=== PATIENT | female | born 1955 | race Caucasian/White ===

== ENCOUNTER → 2018-02-09 16:29 | Outpatient (CLI) | payer BC | END | disposition home or self-care (01) | LOC: D.MAMMO 09:45 | DX: Z12.31 Encounter for screening mammogram for malignant neoplasm of breast (principal) ==

== ENCOUNTER 2019-02-15 08:00 | Outpatient (CLI) | payer BC | END 2019-02-15 23:59 | disposition home or self-care (01) | LOC: D.MAMMO 08:00 | PROVIDERS: ATTEND Clinical Nurse Specialist Family Health | DX: Z12.31 Encounter for screening mammogram for malignant neoplasm of breast (principal) ==

== ENCOUNTER 2020-07-16 15:00 | Outpatient (CLI) | payer MEDICARE | END 2020-07-16 23:59 | disposition home or self-care (01) | LOC: D.MAMMO 15:00 | PROVIDERS: ATTEND Family Medicine | DX: R92.8 Other abnormal and inconclusive findings on diagnostic imaging of breast (principal) ==

== ENCOUNTER → 2020-08-03 14:19 | Outpatient (CLI) | payer MEDICARE | END | disposition home or self-care (01) | LOC: D.LABREF 14:19 | PROVIDERS: ATTEND Orthopaedic Surgery | DX: M17.11 Unilateral primary osteoarthritis, right knee (principal) ==

== ENCOUNTER 2020-09-18 09:21 | Observation (INO) | payer MEDICARE ==
[2020-09-12 12:22] LABS: BILIRUBIN NEGATIVE (NEGATIVE); KETONE NEGATIVE (NEGATIVE); NITRITE POSITIVE (NEGATIVE); UROBILINOGEN NORMAL mg/dL (< 2)
[2020-09-12 12:23] LABS: BACTERIA MOD HPF (NONE SEEN); WHITE CELLS - URINE >50 HPF (0-4)
[2020-09-12 13:01] LABS: BASOPHILS 0.2 % (0-2); EOSINOPHILS 2.1 % (0-7); HEMATOCRIT 46.1 % (36.0-48.0); HEMOGLOBIN 15.2 g/dL (12-16); IMMATURE GRANULOCYTES 0.4 % (0-5); LYMPHOCYTE ABS# 2.29 10x3/uL (1.18-3.74); LYMPHOCYTES 18.7 % (15-50); MCH 27.5 pg (26.0-34.0); MCV 83.5 fL (80.0-100.0); MEAN PLATELET VOLUME 10.3 fL (7.4-10.4); MONOCYTES 6.4 % (2-11); NEUTROPHIL ABS# 8.82 10x3/uL (1.56-6.13); NEUTROPHILS 72.2 % (40-80); PLATELET COUNT 282 10x3/uL (130-400); RBC 5.52 10x6/uL (4.00-5.40); RDW 13.6 % (11.5-14.5); WBC 12.2 10x3/uL (4.8-10.8)
[2020-09-12 13:10] LABS: APTT 29.5 SECONDS (22.8-39.4); INR 1.13 (0.85-1.17); PROTIME 13.4 SECONDS (11.6-15.0)
[2020-09-12 13:13] LABS: ANION GAP 12.3 mmol/L (8-16); CALCIUM 9.6 mg/dL (8.5-10.1); CARBON DIOXIDE 28.1 mmol/L (21.0-32.0); CREATININE - SERUM 1.1 mg/dL (0.6-1.3); POTASSIUM - SERUM 3.4 mmol/L (3.5-5.1)
[2020-09-18] VITALS (12 sets, daily range): BP systolic 82–143; BP diastolic 42–77; Ht 162.6 cm; Wt 86.8 kg
[~2020-09-18] VITALS: Ht 162.6 cm; Wt 86.8 kg
[2020-09-18 09:10] LABS: BILIRUBIN NEGATIVE (NEGATIVE); KETONE NEGATIVE (NEGATIVE); NITRITE NEGATIVE (NEGATIVE); UROBILINOGEN NORMAL mg/dL (< 2); WHITE CELLS - URINE 0-5 HPF (0-4)
[2020-09-18 09:11] LABS: BACTERIA MODERATE HPF (NONE SEEN); SQUAMOUS EPITHELIAL 0-5 HPF (0-4)
[~2020-09-18 09:21] MED LIST: VITAMIN D31250 MCG PO
--- NOTE | 2020-09-18 11:25 | NUR ---
RECEIVED TO ROOM 1209 VIA BED FROM PACU. A/O X3. NO C/O PAIN OR DISCOMFORT. DRESSING TO RIGHT KNEE DRY AND INTACT. DENIES NEEDS.
--- NOTE | 2020-09-18 13:53 | OP ---
PATIENT NAME: CHRIS CAMPBELL MEDICAL RECORD: [id number] :51 LOCATION:D. D.1209 ADMISSION DATE:09/18/20 SURGEON: ANDERSON SANCHEZ DO DATE OF OPERATION: 09/18/2020 PROCEDURE PERFORMED: Right total knee arthroplasty. PREOPERATIVE DIAGNOSIS: Right knee osteoarthritis. POSTOPERATIVE DIAGNOSIS: Right knee osteoarthritis. INDICATIONS: Ms. Campbell is a 64-year-old female who has had right knee pain for quite some time. She got to the point where it was affecting her activities of daily living. She had tried all manner nonoperative treatment for it and wanted something done surgically. She was aware of the risk of this including infection, bleeding, damage to nerves and vessels, need for further surgery, failure of implants, fracture, blood clots and even and she signed the consent. SURGEON: Anderson Sanchez DO DESCRIPTION OF PROCEDURE: The patient received a block by anesthesia the preoperative area and taken to the operative suite, laid in supine position, given general anesthetic and LMA was placed. The right lower extremity was then prepped and draped in sterile fashion. A timeout was performed, everyone was in agreeance with the correct side, site, patient and procedure. She was given a gram of TXA, two grams of Ancef and 80 mg of gentamicin preoperatively. I then marked out an incision over the anterior knee, covered in Ioban. I made an incision through the skin, down to the capsule. I used a fresh 10-blade to go through the capsule, did medial parapatellar approach coagulating any vessels with Aquamantys throughout the procedure. I then everted the patella, measured it with calipers to be about 20 mm. I then milled it down to approximately 14 mm and after removing part of the fat pad drilled for a 29 patella and cemented it in after irrigating and put cement on the patella and on the implant, squeezed it in place, removed excess cement. I then exposed the femur, removed the ACL. I used an intramedullary guide after drilling through the femur and irrigating the intramedullary canal. I then made a distal femur cut off of the distal femoral guide intramedullary and removed that bone. I then exposed the tibia and a cut through an extramedullary guide, brought the knee in extension, remove the menisci and coagulated any bleeding. We then put in a 10 extension block, it fit well. I then flexed up the femur, sized the femur to be a 7. A 7, 4-in-1 cutting block was then used, using the neptali wing to make sure there was no notching. I then cut the femur through the 4-in-1 cutting guide, removed the bone. I then sized the tibia to be E and put the femoral trial on and then a 12 poly, ended up doing in between them, it fit very well, had good stability in varus valgus stress in flexion, mid flexion and extension. I then drilled lug holes for the femur, removed the trial femur as well as the poly, drilled the holes for the tibial press fit, irrigated thoroughly and then impacted on the tibial tray with TM backing and did the same thing on the femur and put a 12 medial congruent E poly in and secured it into place. I then ranged the knee and she had very good stability in flexion, extension, mid flexion, varus and valgus stress. I then irrigated with 10% povidone-iodine with 500 mL of normal saline solution. I then injected about the knee and the quads with the joint cocktail. I then irrigated out the iodine with over a liter of normal saline. Once the knee was dry and did not see any bleeding, I put in Jarvis, vancomycin OPERATIVE REPORT [id number] CHRIS CAMPBELL and tobramycin powder. I then closed the capsule with #1 Vicryl in a [id number]-cuxzy fashion. Artemio Tse, certified surgical assistant department manager then ran a #1 Stratafix over the capsular closure. I then put 2-0 Vicryl in inverted interrupted fashion to close the skin and then put on a ZipLine, Adaptic, 4 x 4s, ABD, Webril, Stephane wrap and a LESLIE hose stocking. She was then awakened and taken to recovery in stable condition. She was given another gram of TXA as well. BLOOD LOSS: Approximately 250 mL. COMPLICATIONS: None. TRANSINT:[id number] Voice Confirmation ID: [id number] DOCUMENT ID: [id number] ANDERSON SANCHEZ DO at 1356 CC: [id number] DICTATION DATE: 09/18/20 1026 PLASTICS FACTORY WORKER: 09/18/20 1349 ADM IN [facility] [address] [id number]
--- NOTE | 2020-09-18 16:22 | NUR ---
UP TO BR WITH MIN ASSIST OF ONE. VOIDED CLEAR YELLOW URINE WITHOUT DIFFICULTY. LAINEY CARE PER SELF. REPOSITIONED IN BED FOR COMFORT.
--- NOTE | 2020-09-18 20:00 | NUR ---
ALERT RESTING IN BED CPM IN USE, DENIES PAIN OR NEEDS AT THIS TIME, SEE SHIFT ASSESSMENT CALL LIGHT IN REACH
[2020-09-19] VITALS: BP 134/71
[2020-09-19 04:30] VITALS: BP 147/78
[2020-09-19] MEDS ORDERED: PERCOCET 5-3251 TAB PO (06:15)
[2020-09-19] MEDS ORDERED: ELIQUIS2.5 MG PO (06:15)
[2020-09-19] MEDS ORDERED: VISTARIL50 MG PO (06:16)
[2020-09-19 07:02] LABS: BASOPHILS 0.7 % (0-2); EOSINOPHILS 0.1 % (0-7); HEMATOCRIT 35.2 % (36.0-48.0); HEMOGLOBIN 11.7 g/dL (12-16); LYMPHOCYTES 9.9 % (15-50); MCHC 33.4 g/dL (31.0-37.0); MEAN PLATELET VOLUME 8.4 fL (7.4-10.4); MONOCYTES 9.7 % (2-11); NEUTROPHILS 79.6 % (40-80); PLATELET COUNT 247 10x3/uL (130-400); RBC 4.34 10x6/uL (4.00-5.40); RDW 13.7 % (11.5-14.5); WBC 16.2 10x3/uL (4.8-10.8)
[2020-09-19 07:18] LABS: ALBUMIN 2.9 g/dL (3.4-5.0); ANION GAP 14.7 mmol/L (8-16); BILIRUBIN - TOTAL 0.29 mg/dL (0.2-1.3); CALCIUM 8.5 mg/dL (8.5-10.1); CARBON DIOXIDE 26.4 mmol/L (21.0-32.0); CREATININE - SERUM 1.1 mg/dL (0.6-1.3); MAGNESIUM - SERUM 2.1 mg/dL (1.8-2.4); POTASSIUM - SERUM 4.1 mmol/L (3.5-5.1); PROTEIN - SERUM 5.8 g/dL (6.4-8.2)
--- NOTE | 2020-09-19 08:02 | NUR ---
PT RESTING IN BED WITH CPM IN PLACE. REPORTS PAIN 4/10 AT THIS TIME. RESP EVEN AND UNLABORED. IV TO LEFT HAND WITH 1/2 NS @ 100 ML/HR INFUSING VIA PUMP. SITE WITHOUT REDNESS OR EDEMA. DRESSING TO RIGHT KNEE C/D/I. DENIES FURTHER NEEDS AT THIS TIME. CL WITHIN REACH. ENCOURAGED TO CALL WITH NEEDS. CONTINUE POC
[2020-09-19 08:31] VITALS: BP 146/60
[2020-09-19] MEDS ORDERED: CIPRO500 MG PO (12:35)
--- NOTE | 2020-09-19 16:22 | MORECARE ---
CASE MANAGEMENT DISCHARGE SUMMARY PATIENT: CHRIS JULES UNIT: [id number] ADM DATE: 09/18/20 AGE: 64 : 53 SEX: F ROOM/BED: D.1209 AUTHOR: CAITY,DOC PHYSICIAN: REFERRING PHYSICIAN: MYKEL SANCHEZ DO DATE OF SERVICE: 09/19/20 Case Management Discharge Planning Summary DCP REVIEW SUMMARY ANTICIPATED D/C DATE: EXPECTED LOS : CASE STATUS: DCP Initiated INITIAL REVIEW: 09/18/2020 INITIAL REVIEWER: Esther Hernandez FINAL DISCHARGE DISPOSITION: : FINAL REVIEWER: FINAL REVIEW DATE: DCP Focus Questions & Answers QUESTION: ANSWER : PATIENT: CHRIS JULES ENCOUNTER: [id number] MEDICAL RECORD#: [id number] ADMISSION DATE: 09/18/2020 DISCHARGE DATE: 09/19/2020 ATTENDING MD: MYKEL LAZCANO : AGE: 64 MARITAL STATUS: S DC PLAN ID: [id number] FACILITY: [facility] PRINTED ON: 09/19/20 16:22 CT All edits/amendments must be made on the electronic document DICTATION DATE: 09/19/201621 TUBE PULLER: DM 09/19/201621 RPT#: [id number] DC DATE:09/19/20 STATUS: DIS IN [facility] [address] [place] [address] END OF REPORT
--- NOTE | 2020-09-19 16:34 | MORECARE ---
CASE MANAGEMENT DISCHARGE SUMMARY PATIENT: CHRIS JULES UNIT: [id number] ADM DATE: 09/18/20 AGE: 64 : 53 SEX: F ROOM/BED: D.1209 AUTHOR: CAITY,NAY PHYSICIAN: REFERRING PHYSICIAN: MYKEL SANCHEZ DO DATE OF SERVICE: 09/19/20 Case Management Discharge Planning Summary COMMENTS ENTERED DATE: 09/19/20 16:21 CT COMMENT TYPE: Discharge Planning REVIEWER: Esther Hernandez PCP: Dr. Shin Pharmacy: [facility] CM met with patient at bedside. Patient states that she lives at home alone but her cousin Shannon will be staying with her for awhile. Patient states that she has 3 steps going into her home. Patient states that she has a walker, elevated toilet seat, bedside commode, shower chair and CPM at home. Patient states that she wishes to do outpatient therapy when discharged. CARLOS signed for [facility]. Patient states that feels safe to discharge to her home with her cousin and she will have transportation home and to therapy. CM made appointment for first therapy appointment September 20 at 10:30 am. CM will give copy of appointment and order to patient. CM will continue to follow and assist as needed with discharge planning / needs DCP REVIEW SUMMARY ANTICIPATED D/C DATE: EXPECTED LOS : CASE STATUS: DCP Initiated INITIAL REVIEW: 09/18/2020 INITIAL REVIEWER: Esther Hernandez FINAL DISCHARGE DISPOSITION: : FINAL REVIEWER: FINAL REVIEW DATE: DCP Focus Questions & Answers QUESTION: ANSWER : PATIENT: CHRIS JULES ENCOUNTER: [id number] MEDICAL RECORD#: [id number] ADMISSION DATE: 09/18/2020 DISCHARGE DATE: 09/19/2020 ATTENDING MD: MYKEL LAZCANO : AGE: 64 MARITAL STATUS: S DC PLAN ID: [id number] FACILITY: [facility] PRINTED ON: 09/19/20 16:34 CT All edits/amendments must be made on the electronic document DICTATION DATE: 09/19/201633 FACILITIES CUSTODIAN: GRACIELA 09/19/20 1634 RPT#: [id number] DC DATE:09/19/20 STATUS: DIS IN [facility] [address] [place] [address] END OF REPORT
--- NOTE | 2020-09-19 20:04 | MORECARE ---
CASE MANAGEMENT DISCHARGE SUMMARY PATIENT: CHRIS JULES UNIT: [id number] ADM DATE: 09/18/20 AGE: 64 : 53 SEX: F ROOM/BED: D.1209 AUTHOR: CAITY,NAY PHYSICIAN: REFERRING PHYSICIAN: MYKEL SANCHEZ DO DATE OF SERVICE: 09/19/20 Case Management Discharge Planning Summary COMMENTS ENTERED DATE: 09/19/20 16:21 CT COMMENT TYPE: Discharge Planning REVIEWER: Esther Hernandez PCP: Dr. Shin Pharmacy: [facility] CM met with patient at bedside. Patient states that she lives at home alone but her cousin Shannon will be staying with her for awhile. Patient states that she has 3 steps going into her home. Patient states that she has a walker, elevated toilet seat, bedside commode, shower chair and CPM at home. Patient states that she wishes to do outpatient therapy when discharged. CARLOS signed for [facility]. Patient states that feels safe to discharge to her home with her cousin and she will have transportation home and to therapy. CM made appointment for first therapy appointment September 20 at 10:30 am. CM will give copy of appointment and order to patient. CM will continue to follow and assist as needed with discharge planning / needs DCP REVIEW SUMMARY ANTICIPATED D/C DATE: EXPECTED LOS : CASE STATUS: DCP Initiated INITIAL REVIEW: 09/18/2020 INITIAL REVIEWER: Esther Hernandez FINAL DISCHARGE DISPOSITION: : FINAL REVIEWER: FINAL REVIEW DATE: DCP Focus Questions & Answers QUESTION: ANSWER : PATIENT: CHRIS JULES ENCOUNTER: [id number] MEDICAL RECORD#: [id number] ADMISSION DATE: 09/18/2020 DISCHARGE DATE: 09/19/2020 ATTENDING MD: MYKEL LAZCANO : AGE: 64 MARITAL STATUS: S DC PLAN ID: [id number] FACILITY: [facility] PRINTED ON: 09/19/20 20:04 CT All edits/amendments must be made on the electronic document DICTATION DATE: 09/19/202003 CARD CHECKER: GRACIELA 09/19/202003 RPT#: [id number] DC DATE:09/19/20 STATUS: DIS IN [facility] [address] [place] [address] END OF REPORT
== END 2020-09-19 15:07 | disposition home or self-care (01) ==
LOC: D.OPS 09:21 → D.M3 10:52 → OBSVTIME 10:52 → D.M3 09-19 15:07
PROVIDERS: Family Medicine; ADMIT Orthopaedic Surgery; ATTEND Orthopaedic Surgery
DX: M17.11 Unilateral primary osteoarthritis, right knee (principal); K21.9 Gastro-esophageal reflux disease without esophagitis; D72.829 Elevated white blood cell count, unspecified